=== PATIENT | male | born 1950 | race Caucasian/White ===

== ENCOUNTER 2016-08-20 16:45 | Emergency (ER) | payer MEDICARE, OTHER ==
[2016-08-20 17:12] LABS: BASOPHIL# 0.1 X 10^3uL (0.0-0.1); BASOPHILS 0.8 % (0.0-2.0); EOSINOPHILS 1.4 % (0.0-6.0); EOSINOPHILS# 0.1 X 10^3uL (0.0-0.4); HEMATOCRIT 46.2 % (42.0-54.0); HEMOGLOBIN 15.8 g/dL (14.0-18.0); LYMPHOCYTES 36.5 % (20.0-40.0); LYMPHOCYTES# 2.8 X 10^3uL (0.8-3.8); MEAN CELL VOLUME 85.1 fL (80.0-100.0); MEAN CORPUS. HGB CONCENTRATION 34.1 g/dL (32.0-36.0); MEAN PLATELET VOLUME 7.4 fL (7.4-10.4); MONOCYTES 8.4 % (2.0-10.0); MONOCYTES# 0.6 X 10^3uL (0.2-1.0); NEUTROPHILS 52.9 % (54.0-75.0); NEUTROPHILS# 4.1 X 10^3uL (2.6-6.7); PLATELET COUNT 268 X 10^3uL (130-440); RED BLOOD COUNT 5.43 X 10^6uL (4.20-6.10); RED CELL DISTRIBUTION WIDTH 12.7 % (11.5-14.5); WHITE BLOOD COUNT 7.7 X 10^3uL (3.9-10.7)
[2016-08-20 17:18] LABS: BLOOD UREA NITROGEN 21 mg/dL (9-20); CALCIUM 9.7 mg/dL (8.4-10.2); CHLORIDE 101 mmol/L (98-107); EST GLOMERULAR FILTRATION RATE > 60 mL/min; GLUCOSE 72 mg/dL (70-100); MAGNESIUM 2.2 mg/dL (1.6-2.3); POTASSIUM 3.5 mmol/L (3.5-5.1); SODIUM 143 mmol/L (137-145)
[2016-08-20 17:31] LABS: TROPONIN I < 0.012 ng/mL (0.00-0.034)
--- NOTE | 2016-08-20 17:53 | ER NURSING DOCUMENTATION ---
Nurse's Notes [facility] Name:Dion Santos Age:66 yrs Sex:Male :1950 Arrival Date:08/20/2016 Time:16:45 BedTrauma-C Private MD: Diagnosis:Chest Pain, Other Presentation: 08/20 17:00 Notified ED Physician of Rico Monteiro notified. mt1 17:02 Acuity: ÁNGEL 3 mt1 17:21 Presenting complaint: Patient states: tightness in his left shoulder on and off for the mt1 last 1-2 days, also c/oing of weakness. Here from [facility]. Transition of care: patient was not received from another setting of care. Asprin Given Given in ED 325 mg po. 17:21 Method Of Arrival: Private Vehicle mt1 17:52 AIR CAT ACTIVATION no. sc1 Triage Assessment: 17:23 General: Appears in no apparent distress, well developed, well nourished, well groomed, mt1 Behavior is cooperative, pleasant. Pain: Complains of pain in left ant. shoulder. Cardiovascular: No deficits noted. Historical: - PMHx: CAD; - Ebola Screening: : Patient negative for fever greater than or equal to 101.5 degrees Fahrenheit, and additional compatible Ebola Virus Disease symptoms. Patient denies exposure to infectious person. Patient denies travel to an Ebola-affected area in the 21 days before illness onset. No symptoms or risks identified at this time. . - Immunization history: Flu Vaccine < 1 year. - Social history: Smoking status: Patient states was never smoker of tobacco. Patient/guardian denies using alcohol, street drugs, IV drugs, marijuana. Screenin:26 Infectious Disease Risk None. Abuse screen: Denies threats or abuse. Nutritional mt1 screening: No deficits noted. Assessment: 17:52 Pain: Pain began 1 day ago 2-3 days ago. mt1 17:52 Pain: Pain does not radiate. mt1 Vital Signs: 16:50 BP 156 / 73 (auto/); sc1 16:54 Pulse 64 MON; Resp 17; Pulse Ox 96% ; sc1 17:00 BP 156 / 74 (auto/); sc1 17:04 Pulse 57 MON; Resp 16; Pulse Ox 94% ; sc1 17:15 BP 140 / 77 (auto/); sc1 17:19 Pulse 53 MON; Resp 15; Pulse Ox 93% ; mt1 17:30 BP 153 / 76 (auto/); mt1 17:34 Pulse 57 MON; Resp 14; Pulse Ox 92% ; mt1 ED Course: 16:45 Patient arrived in ED. ds 16:47 Rusty Gómez MD is Attending Physician. jami 16:55 Valuables Remains with patient. color television console monitor on. Pulse ox on. NIBP on. [facility] 17:00 Inserted peripheral IV: 20 gauge in right antecubital area and blood collected. mt1 17:00 Notified ED Physician of patient's arrival and chief complaint. Dr. Gómez notified. Arm sc1 band placed on Bed in low position Call Light in Reach Gowned HOB Elevated Side rails up x1. EKG done per protocol. Performed by ED Staff. Labs ordered per protocol. Drawn by ED staff. X-ray ordered. 17:02 Amber Moy, RN is Primary Nurse. [facility] 17:02 Triage completed. mt1 17:15 Port Xray Completed. tt 17:17 CHEST; SINGLE VIEW [id number] In Process Unspecified. EDTN 17:37 EKG attached [facility] 17:51 Discontinued lock intact, bleeding controlled, pressure dressing applied, No [facility] redness/swelling at site. Administered Medications: 17:00 Drug: Aspirin Chewable Tablet 324 mg; Route: PO; [facility] 17:49 Follow up: Response: No adverse reaction [facility] Outcome: 17:34 Discharged to home ambulatory. [facility] 17:34 Condition: improved 17:34 Discharge instructions given to patient, Instructed on discharge instructions, follow up and referral plans. Demonstrated understanding of instructions. 17:39 Discharge ordered by . 17:52 Patient left the ED. [facility] Signatures: Dispatcher [employer] EDAmber Rowe, RN RN [facility] Roberto, Toya, Reg Reg ds Rusty Gómez MD MD jm Terriere, Tracy tt
--- NOTE | 2016-08-20 17:53 | ER PHYSICIAN DOCUMENTATION ---
Physician Documentation [facility] Name:Dion Santos Age:66 yrs Sex:Male :1950 Arrival Date:08/20/2016 Time:16:45 BedTrauma-C Private MD: Rusty Virgen Disposition: 08/20/16 17:39 Discharged to Home/Self Care. Impression: Chest Pain, Other. - Condition is Good. - Discharge Instructions: Chest Pain - CHEST PAIN, Uncertain Cause. - Medical Reconciliation form form. - Follow up: Private Physician; When: 1 week; Reason: Continuance of care. - Problem is new. - Symptoms have improved. HPI: 08/20 17:19 This 66 yrs old Male presents to ER with complaints of Chest Pain. 17:19 The patient or guardian reports chest pain that is located primarily in the anterior jm chest wall, anterior aspect of left upper chest. Onset: yesterday. The pain does not radiate. There has been no movement of pain. Associated signs and symptoms: Pertinent negatives: cough, diaphoresis, dizziness, lightheadedness, nausea, palpitations, shortness of breath. The chest pain is described as sharp. Duration: The patient or guardian reports multiple episodes, that wax and wane, latest episode has been present for most of the day today. . Modifying factors: The symptoms are alleviated by nothing. the symptoms are aggravated by nothing. Severity of pain: in the emergency department the pain is a 2 / 10. Risk factors for coronary artery disease include: This patient has known coronary artery disease. The patient has not experienced similar symptoms in the past. The patient has not recently seen a physician. [place] and has been hiking around. He noted some on and off CP yesterday that has been more consistent today. He recently had a friend of a MS, and he has hx of CAD, so he thought he desi be on the safe side and get checked out. . Historical: - PMHx: CAD; - Ebola Screening: : Patient negative for fever greater than or equal to 101.5 degrees Fahrenheit, and additional compatible Ebola Virus Disease symptoms. Patient denies exposure to infectious person. Patient denies travel to an Ebola-affected area in the 21 days before illness onset. No symptoms or risks identified at this time. . - Immunization history: Flu Vaccine < 1 year. - Social history: Smoking status: Patient states was never smoker of tobacco. Patient/guardian denies using alcohol, street drugs, IV drugs, marijuana. ROS: 17:21 Constitutional: Negative for fatigue, fever, malaise. jm 17:21 Cardiovascular: Positive for chest pain. 17:21 Respiratory: Negative for cough, shortness of breath. 17:21 Abdomen/GI: Negative for nausea, vomiting. 17:21 MS/extremity: Negative for swelling, tenderness. 17:21 Skin: Negative for swelling. 17:21 Neuro: Negative for dizziness, near syncope. 17:21 All other systems are negative. Exam: 17:21 Constitutional: The patient appears alert, awake, comfortable. 17:21 Eyes: Periorbital structures: appear normal, Conjunctiva: normal. 17:21 ENT: Mouth: is normal, Voice: is normal. 17:21 Neck: Thyroid: appears normal, Trachea: is midline with no obvious abnormalities. 17:21 Chest/axilla: Inspection: normal, Palpation: is normal. 17:21 Cardiovascular: Rate: normal, Rhythm: regular. 17:21 Respiratory: Respirations: normal, Breath sounds: are normal. 17:21 Abdomen/GI: Bowel sounds: normal, Palpation: abdomen is soft and non-tender. 17:21 Musculoskeletal/extremity: DVT Exam: No signs of deep vein thrombosis. Calves: are non-tender. 17:21 Skin: Appearance: Color: pink, no rash present. 17:21 Neuro: Mentation: is normal, Memory: is normal. 17:21 Psych: Behavior/mood is pleasant, cooperative, Affect is calm. Vital Signs: 16:50 BP 156 / 73 (auto/); sc1 16:54 Pulse 64 MON; Resp 17; Pulse Ox 96% ; sc1 17:00 BP 156 / 74 (auto/); sc1 17:04 Pulse 57 MON; Resp 16; Pulse Ox 94% ; sc1 17:15 BP 140 / 77 (auto/); sc1 17:19 Pulse 53 MON; Resp 15; Pulse Ox 93% ; sc1 17:30 BP 153 / 76 (auto/); sc1 17:34 Pulse 57 MON; Resp 14; Pulse Ox 92% ; sc1 MDM: 16:47 Patient medically screened. 17:24 Differential diagnosis: acute myocardial infarction, anxiety, chest wall pain, stable jm angina. Patient took aspirin in the Emergency Department. Data reviewed: vital signs, nurses notes, lab test result(s), EKG, radiologic studies, and as a result, I will discharge patient. Test interpretation: by ED physician or midlevel provider: plain radiologic studies, ECG. Counseling: I had a detailed discussion with the patient and/or guardian regarding: the historical points, exam findings, and any diagnostic results supporting the discharge/admit diagnosis, lab results, radiology results, the need for outpatient follow up, with the patient's primary care provider. ECG:. 17:37 EKG attached [facility] 17:38 ED course: Trop undetectable, EKG/CXR normal. Pt feels better just hearing that jm everything here looks reassuring. Pt DC'd home. . 08/20 17:19 Order name: CBC AUTO DIF, MDIF/RMOR IF IND; Complete Time: 17:38 [facility] / 17:31 Order name: BASIC METABOLIC PANEL; Complete Time: 17:38 [facility] 08/20 17:31 Order name: MAGNESIUM; Complete Time: 17:38 [facility] 08/20 17:31 Order name: TROPONIN I; Complete Time: 17:38 [facility] 08/20 17:17 Order name: CHEST; SINGLE VIEW [id number] [facility] 08/20 21:50 Order name: CHEST; SINGLE VIEW [id number] [facility] 08/20 17:00 Order name: 12-lead EKG; Complete Time: 17:21 08/20 17:00 Order name: Iv Saline Lock; Complete Time: 17:21 08/20 17:00 Order name: Place Patient On Monitor; Complete Time: 17:21 08/20 17:00 Order name: Pulse Ox Continuous; Complete Time: 17:21 EC:24 Rhythm is regular. QRS [place] is Normal. [place] interval is normal. QT interval is normal. No jm Q waves. T waves are Normal. No ST changes noted. Dispensed Medications: 17:00 Drug: Aspirin Chewable Tablet 324 mg; Route: PO; mn1 17:49 Follow up: Response: No adverse reaction mn1 Signatures: Amber Moy RN RN sc1 Rusty Gómez MD MD
--- NOTE | 2016-08-20 20:28 | RADIOLOGY REPORT ---
A limited single portable view of the chest, without prior films for comparison , demonstrates the heart, vessels and lungs to be unremarkable. No infiltrate, fluid or pneumothorax is seen. IMPRESSION: Unremarkable limited single portable view of the chest. MTDD
== END 2016-08-20 17:53 | disposition home or self-care (01) ==
LOC: ER 16:45
DX: R07.89 Other chest pain (principal); I25.10 Atherosclerotic heart disease of native coronary artery without angina pectoris
CPT/HCPCS: 71010; 80048; 83735; 84484; 85025; 93005; 93010; 99284; 99285